=== PATIENT | male | born 1995 | race Caucasian/White ===

== ENCOUNTER 2020-04-04 09:28 | Emergency (ER) | payer OTHER ==
[~2020-04-04] VITALS: Ht 177.8 cm; Wt 102.1 kg
[2020-04-04] MEDS ORDERED: POLYETHYLENE GL17 GM (09:44)
[2020-04-04] MEDS ORDERED: DEPAKOTE500 MG (09:44)
--- NOTE | 2020-04-04 17:25 | EKG ---
[facility] [address] [facility] [place], [place] [address] Signed Normal sinus rhythm Normal ECG No previous ECGs available Confirmed by LUANNE SALCIDO MD ([id number] on 04/04/2020 5:25:10 PM Electronically Signed By: LUANNE SALCIDO MD 04/04/20 1725 PATIENT NAME: VIKASHMARIA LUISA J Electrocardiogram DATE OF : [birth year] PHYSICIAN: LUANNE SALCIDO MD REPORT #: [id number] REPORT IS CONFIDENTIAL AND NOT TO BE RELEASED WITHOUT AUTHORIZATION
== END 2020-04-04 11:02 | disposition home or self-care (01) ==
LOC: ED 09:28
DX: S46.912A Strain of unspecified muscle, fascia and tendon at shoulder and upper arm level, left arm, initial encounter (principal); X58.XXXA Exposure to other specified factors, initial encounter
CPT/HCPCS: 71045; 93005; 93010; 96372; 99284-25; J1885

== ENCOUNTER 2022-02-16 20:15 | Emergency (ER) | payer OTHER ==
[~2022-02-16] VITALS: Ht 177.8 cm; Wt 125.0 kg
[~2022-02-16 20:15] MED LIST: DEPAKOTE500 MG; POLYETHYLENE GL17 GM
[2022-02-16] MEDS ORDERED: LISINOPRIL20 MG PO (20:23)
[2022-02-16] MEDS ORDERED: MELATONIN5 M4 PO (20:24)
[2022-02-16] MEDS ORDERED: DAILY FIBER PO (20:24)
[2022-02-16] MEDS ORDERED: VALPROIC A250 MG/5 M PO (20:24)
== END 2022-02-16 22:06 | disposition home or self-care (01) ==
LOC: ED 20:15
DX: T18.128A Food in esophagus causing other injury, initial encounter (principal); Z79.899 Other long term (current) drug therapy; W45.8XXA Other foreign body or object entering through skin, initial encounter
CPT/HCPCS: 71045; 99284-25